=== PATIENT | male | born 1950 | race African-American/Black ===

== ENCOUNTER 2018-12-31 23:50 | Emergency (ER) | payer OTHER, MEDICARE ==
[~2018-12-31] VITALS: Ht 175.3 cm; Wt 77.0 kg
[2019-01-01] MEDS ORDERED: SODIUM CHLORIDE 0.9% 1,000 ML IV ONE (00:27)
[2019-01-01] MEDS ORDERED: FAMOTIDINE 20MG/2ML VIAL IV STA (00:27)
[2019-01-01] MEDS ORDERED: MORPHINE SULFATE 4 MG/ML CPJ (NOT FOR IM USE) IV STA (00:27)
[2019-01-01] MEDS ORDERED: ONDANSETRON HCL 4MG/2ML INJ IV STA (00:27)
[2019-01-01 00:45] LABS: HEMATOCRIT. 42.1 % (42.0-52.0); HEMOGLOBIN. 14.7 g/dL (14.0-18.0); MEAN CORPUSCULAR HEMOGLOBIN 36.5 pg (28.0-32.0); MEAN CORPUSCULAR VOLUME 104.8 fL (80.0-94.0); MEAN PLATELET VOLUME 8.6 fl (7.4-10.4); PLATELET 122 x1000/uL (130-400); RED BLOOD CELL COUNT 4.02 mill/uL (4.7-6.1); RED CELL DISTRIBUTION WIDTH 12.3 % (11.6-14.6)
[2019-01-01 00:49] LABS: CHLORIDE 104 mEq/L (98-107)
[2019-01-01 01:16] LABS: ATYPICAL LYMPHOCYTES 1; PLATELET ESTIMATE SLIGHTLY DECREASED
[2019-01-01 01:43] LABS: CLARITY URINE CLOUDY (CLEAR); COLOR URINE DARK YELLOW (YELLOW); KETONES URINE 1+ (NEGATIVE); LEUKOCYTE ESTERASE URINE NEGATIVE (NEGATIVE); NITRITE URINE NEGATIVE (NEGATIVE); OCCULT BLOOD URINE NEGATIVE (NEGATIVE); PH URINE 7.5 (4.5-8.0); PROTEIN URINE NEGATIVE (NEGATIVE); SPECIFIC GRAVITY URINE 1.017 (1.005-1.030)
[2019-01-01] MEDS ORDERED: IOHEXOL-300 100 ML BOTTLE ONE (02:56)
[2019-01-01] MEDS ORDERED: CEFTRIAXONE 1 G PREMIX 50 ML IV SCH (03:00)
[2019-01-01 04:28] VITALS: BP 178/83
[2019-01-01] MEDS ORDERED: ENALAPRIL 2.5MG/2ML VIAL 2ML IV ONE (05:00)
== END 2019-01-01 05:03 | disposition short-term general hospital (02) ==
LOC: ER 23:50 → CANBEDREQ 01-01 05:19
DX: K80.42 Calculus of bile duct with acute cholecystitis without obstruction (principal); I11.9 Hypertensive heart disease without heart failure; R94.5 Abnormal results of liver function studies; N40.0 Benign prostatic hyperplasia without lower urinary tract symptoms; K57.30 Diverticulosis of large intestine without perforation or abscess without bleeding; Z88.6 Allergy status to analgesic agent; Z95.1 Presence of aortocoronary bypass graft
CPT/HCPCS: 36415; 74177; 76705; 80053; 81003; 83605; 83690; 85025; 96361; 96374; 96375; 99285; J0696; J2270; J2405; J3490; J7030; Q9967

== ENCOUNTER 2021-03-04 20:55 | Inpatient (IN) | payer OTHER, MEDICARE ==
[~2021-03-04] VITALS: Ht 172.7 cm; Wt 84.4 kg
[2021-03-04 22:30] LABS: BASOPHILS % 0.5 % (0.0-2.0); EOSINOPHILS % 0.2 % (0.0-5.0); HEMATOCRIT. 44.9 % (42.0-52.0); HEMOGLOBIN. 15.3 g/dL (14.0-18.0); LYMPHOCYTES % 25.9 % (20.0-50.0); MEAN CORPUSCULAR HEMOGLOBIN 36.3 pg (28.0-32.0); MEAN CORPUSCULAR VOLUME 106.6 fL (80.0-94.0); MEAN PLATELET VOLUME 8.2 fl (7.4-10.4); MONOCYTES % 8.3 % (2.0-8.0); NEUTROPHILS % 65.1 % (40.0-76.0); PLATELET 129 x1000/uL (130-400); RED BLOOD CELL COUNT 4.21 mill/uL (4.7-6.1); RED CELL DISTRIBUTION WIDTH 12.2 % (11.6-14.6)
[2021-03-04 22:36] LABS: CLARITY URINE CLEAR (CLEAR); COLOR URINE YELLOW (YELLOW); KETONES URINE NEGATIVE (NEGATIVE); LEUKOCYTE ESTERASE URINE NEGATIVE (NEGATIVE); NITRITE URINE NEGATIVE (NEGATIVE); OCCULT BLOOD URINE NEGATIVE (NEGATIVE); PH URINE 6.5 (4.5-8.0); PROTEIN URINE NEGATIVE (NEGATIVE); SPECIFIC GRAVITY URINE 1.004 (1.005-1.030)
[2021-03-04 22:37] LABS: CHLORIDE 98 mEq/L (98-107)
[2021-03-04 22:40] LABS: PROTHROMBIN TIME 10.3 sec (9.6-11.0)
[2021-03-05] MEDS ORDERED: CLINDAMYCIN 600 MG in DEXTROSE 5% WATER 50 ML IV ONE
[2021-03-05] MEDS ORDERED: MORPHINE SULFATE 4 MG/ML CPJ (NOT FOR IM USE) IV ONE
[2021-03-05] MEDS ORDERED: MORPHINE SULFATE 2 MG/ML CPJ (NOT FOR IM USE) IV SCH (00:15)
[2021-03-05] MEDS ORDERED: CLINDAMYCIN 600MG PREMIX 50 ML IV SCH (01:00)
[2021-03-05] MEDS ORDERED: POTASSIUM CHLORIDE 10MEQ TABLET SR PO SCH (01:30)
[2021-03-05] MEDS ORDERED: HYDROCODONE/ACETAMINOPHEN 5/325MG TABLET PO ONE (02:00)
[2021-03-05] MEDS ORDERED: HYDRALAZINE 20MG/ML VIAL IV ONE (03:15)
[2021-03-05] MEDS ORDERED: IOHEXOL-350 100 ML BOTTLE ONE (05:10)
[2021-03-05] MEDS ORDERED: ONDANSETRON HCL 4MG/2ML INJ IV PRN (06:30)
[2021-03-05] MEDS ORDERED: DOCUSATE SODIUM 100MG CAPSULE PO PRN (06:30)
[2021-03-05] MEDS ORDERED: HYDROCODONE/ACETAMINOPHEN 5/325MG TABLET PO PRN (06:30)
[2021-03-05] MEDS ORDERED: GUAIFENESIN 200MG/10ML SUGAR FREE UDC PO PRN (06:30)
[2021-03-05] MEDS ORDERED: ACETAMINOPHEN 325MG TABLET PO PRN (06:30)
[2021-03-05] MEDS ORDERED: ENOXAPARIN 40MG/0.4ML SYR SUBCUT SCH (06:30)
[2021-03-05] MEDS ORDERED: LISINOPRIL 20MG TABLET PO SCH (08:00)
[2021-03-05] MEDS ORDERED: NALOXONE HCL 0.4MG/ML VIAL IV PRN (08:00)
[2021-03-05] MEDS: AMLODIPINE 10MG TABLET PO SCH ×2 (08:13→09:00)
[2021-03-05 09:00] VITALS: BP 185/89
[2021-03-05] MEDS ORDERED: ENOXAPARIN 30MG/0.3ML SYR SUBCUT SCH (09:00)
[2021-03-05] MEDS ORDERED: INFLUENZA VACCINE 05/PF 0.5 ML SYRINGE IM ONE (11:15)
[2021-03-05 11:22] LABS: BASOPHILS % 1.1 % (0.0-2.0); HEMATOCRIT. 41.9 % (42.0-52.0); HEMOGLOBIN. 14.5 g/dL (14.0-18.0); LYMPHOCYTES % 11.8 % (20.0-50.0); MEAN CORPUSCULAR HEMOGLOBIN 36.1 pg (28.0-32.0); MEAN CORPUSCULAR VOLUME 104.9 fL (80.0-94.0); MEAN PLATELET VOLUME 8.1 fl (7.4-10.4); NEUTROPHILS % 81.1 % (40.0-76.0); PLATELET 137 x1000/uL (130-400); RED CELL DISTRIBUTION WIDTH 12.8 % (11.6-14.6)
[2021-03-05 11:30] LABS: CHLORIDE 96 mEq/L (98-107)
[2021-03-05] MEDS ORDERED: ASCO125T PO (11:50)
[2021-03-05] MEDS ORDERED: METO25TA6 MT (11:50)
[2021-03-05] MEDS ORDERED: HYDR25TA PO (11:50)
[2021-03-05] MEDS ORDERED: CALC-989 MT (11:50)
[2021-03-05] MEDS ORDERED: CHOL400D7 PO (11:50)
[2021-03-05] MEDS ORDERED: MULT-1195 MT (11:50)
[2021-03-05] MEDS ORDERED: CYAN50003 PO (11:50)
[2021-03-05] MEDS ORDERED: BETA1BEA PO (11:50)
[2021-03-05 12:00] VITALS: BP 185/97
[2021-03-05] MEDS: CLONIDINE 0.1MG TABLET PO PRN ×2 (14:32→20:27)
[2021-03-05] MEDS: HYDRALAZINE HCL 50MG TABLET PO SCH ×2 (14:32→20:27)
[2021-03-05 16:00] VITALS: BP 180/98
[2021-03-05 20:00] VITALS: BP_SYST 196; BP_SYST 214; BP_SYST 226; BP_DIAS 109; BP_DIAS 118; BP_DIAS 99
[2021-03-05] MEDS: ENOXAPARIN 40MG/0.4ML SYR SUBCUT SCH (20:26)
[2021-03-05 22:00] VITALS: BP 164/89
[2021-03-05] MEDS ORDERED: HYDRALAZINE 20MG/ML VIAL IV PRN (23:45)
[2021-03-06] VITALS: BP 166/91
[2021-03-06 04:00] VITALS: BP_SYST 153; BP_SYST 156; BP_DIAS 63; BP_DIAS 95
[2021-03-06] MEDS ORDERED: HYDRALAZINE HCL 100MG TABLET PO SCH (06:00)
[2021-03-06 08:00] VITALS: BP_SYST 142; BP_SYST 143; BP_SYST 151; BP_DIAS 88; BP_DIAS 92; BP_DIAS 98
[2021-03-06 08:31] LABS: BASOPHILS % 0.8 % (0.0-2.0); EOSINOPHILS % 0.7 % (0.0-5.0); HEMATOCRIT. 42.4 % (42.0-52.0); HEMOGLOBIN. 14.6 g/dL (14.0-18.0); LYMPHOCYTES % 14.4 % (20.0-50.0); MEAN CORPUSCULAR HEMOGLOBIN 36.3 pg (28.0-32.0); MEAN CORPUSCULAR VOLUME 105.6 fL (80.0-94.0); MONOCYTES % 12.3 % (2.0-8.0); NEUTROPHILS % 71.8 % (40.0-76.0); PLATELET 120 x1000/uL (130-400); RED BLOOD CELL COUNT 4.02 mill/uL (4.7-6.1); RED CELL DISTRIBUTION WIDTH 12.8 % (11.6-14.6)
[2021-03-06 08:41] LABS: CHLORIDE 99 mEq/L (98-107)
[2021-03-06 09:00] LABS: HDL CHOLESTEROL 94 mg/dL (40-59)
[2021-03-06] MEDS: AMLODIPINE 10MG TABLET PO SCH (09:00)
[2021-03-06] MEDS ORDERED: LISINOPRIL 20MG TABLET PO SCH (09:00)
[2021-03-06 09:01] LABS: LDL CHOLESTEROL 65 mg/dL (5-100)
[2021-03-06] MEDS: ENOXAPARIN 40MG/0.4ML SYR SUBCUT SCH (09:01)
[2021-03-06 12:10] VITALS: BP 143/88
[2021-03-06] MEDS ORDERED: AMLODIPINE 10MG TABLET PO SCH (21:00)
== END 2021-03-06 12:52 | disposition home or self-care (01) | DRG 305 ==
LOC: ER 20:55 → MICUSO 03-05 05:57 → 6WST 03-05 07:49
PROVIDERS: ADMIT Hospitalist; ATTEND Hospitalist
DX: I16.0 Hypertensive urgency (principal); S02.609A Fracture of mandible, unspecified, initial encounter for closed fracture; I10 Essential (primary) hypertension; I25.10 Atherosclerotic heart disease of native coronary artery without angina pectoris; W18.39XA Other fall on same level, initial encounter; Y93.89 Activity, other specified; Z88.6 Allergy status to analgesic agent; Z95.1 Presence of aortocoronary bypass graft; Z82.49 Family history of ischemic heart disease and other diseases of the circulatory system; Y92.89 Other specified places as the place of occurrence of the external cause; Y99.8 Other external cause status
CPT/HCPCS: 36415; 70486; 71045; 71275; 80053; 80061; 81003; 82550; 83735; 83880; 84484; 85025; 90686; 93005; 93306; 99285; J0360; J1650; J2270; J3490; J7060; Q9967